=== PATIENT | female | born 1945 | race Caucasian/White ===

== ENCOUNTER → 2017-04-01 | Outpatient (CLI) | payer MEDICARE, OTHER ==
[~2017-04-01] MED LIST: HYDR25TA6 PO; LOSA50TA6 PO
[2017-04-01 14:52] LABS: BLOOD UREA NITROGEN 16 mg/dL (7-18)
[2017-04-01 14:55] LABS: ASPARTATE AMINO TRANSFERASE 17 U/L (15-37)
== END | disposition home or self-care (01) ==
LOC: STAR 13:26
PROVIDERS: ATTEND Obstetrics & Gynecology Female Pelvic Medicine and Reconstructive Surgery
DX: Z01.818 Encounter for other preprocedural examination (principal); N39.3 Stress incontinence (female) (male); N81.10 Cystocele, unspecified; N81.6 Rectocele; R10.2 Pelvic and perineal pain
CPT/HCPCS: 36415; 80053; 93005

== ENCOUNTER 2017-04-06 08:44 | Day surgery (SDC) | payer MEDICARE, OTHER ==
[2017-04-01 15:00] VITALS: BP 155/87
[~2017-04-06] VITALS: Ht 162.6 cm; Wt 66.0 kg
[~2017-04-06 08:44] MED LIST changes: +BUPIVACAINE/PF 0.25% ONE; +EPINEPHRINE 1 MG/ML, 1ML ONE; +NEOMY/POLYMYXIN B GU IRR. 1 ML IRRIG ONE
[2017-04-06] MEDS ORDERED: LACTATED RINGERS 1,000 ML IV SCH (09:00)
[2017-04-06] MEDS ORDERED: LIDOCAINE 1%, 2ML SQ PRN (09:00)
[2017-04-06] MEDS ORDERED: FENTANYL PF 100 MCG/2ML ONE ×3 (09:16→11:42)
[2017-04-06] MEDS ORDERED: MIDAZOLAM 1 MG/ML, 2ML ONE (09:16)
[2017-04-06] MEDS ORDERED: LIDOCAINE-MPF 2% ,5ML ONE (09:17)
[2017-04-06] MEDS ORDERED: PROPOFOL 10 MG/ML, 20ML ONE (09:17)
[2017-04-06] MEDS ORDERED: GLYCOPYRROLATE 0.4 MG/2 ML, 2ML ONE (09:18)
[2017-04-06] MEDS ORDERED: NEOSTIGMINE 1 MG/ML, 10ML ONE (09:18)
[2017-04-06] MEDS ORDERED: APREPITANT 40 MG CAPSULE PO ONE (09:38)
[2017-04-06] MEDS ORDERED: PROPOFOL 50 ML ONE (09:43)
[2017-04-06] MEDS ORDERED: CEFOTETAN 2 GM ONE (09:55)
[2017-04-06] MEDS ORDERED: PHENYLEPHRINE 10 MG/ML ONE (09:55)
[2017-04-06] MEDS ORDERED: ROCURONIUM 10 MG/ML,10ML ONE (09:55)
[2017-04-06] MEDS ORDERED: DEXAMETHASONE 4 MG/ML, 1ML ONE ×2 (10:02)
[2017-04-06] MEDS ORDERED: KETAMINE 10 MG/ML, 20ML ONE (10:16)
[2017-04-06] MEDS ORDERED: ACETAMINOPHEN 325 MG TABLET PO PRN (10:30)
[2017-04-06] MEDS ORDERED: ONDANSETRON 2MG/ML, 2ML IVPush PRN (10:30)
[2017-04-06] MEDS ORDERED: MEPERIDINE/PF 25MG/0.5ML IVPush PRN (10:30)
[2017-04-06] MEDS ORDERED: HYDROmorphone 1 MG/ML, 1ML IV PRN (10:30)
[2017-04-06] MEDS ORDERED: LABETALOL 5MG/ML, 20ML IV PRN (10:30)
[2017-04-06] MEDS ORDERED: hydrALAzine 20 MG/ML, 1ML IV PRN (10:30)
[2017-04-06] MEDS ORDERED: PROMETHAZINE 25 MG/ML, 1ML IV PRN (10:30)
[2017-04-06] MEDS ORDERED: ONDANSETRON 2MG/ML, 2ML ONE (10:53)
[2017-04-06] MEDS ORDERED: ACETAMINOPHEN 325 MG TABLET ONE (11:42)
[2017-04-06] MEDS ORDERED: OXYcodone 5 MG/5 ML ORAL.SOL UDC ONE ×2 (11:42→12:39)
[2017-04-06] MEDS ORDERED: ACETAMINOPHEN 650 MG/20.3 ML UDC ONE (11:42)
[2017-04-06] MEDS: OXYcodone 5 MG/5 ML ORAL.SOL UDC PO PRN ×2 (11:44→12:46)
[2017-04-06] MEDS: FENTANYL PF 100 MCG/2ML IV PRN ×2 (11:48→12:26)
[2017-04-06] MEDS ORDERED: MEPERIDINE/PF 50 MG/ML ONE (12:39)
[2017-04-06] MEDS ORDERED: HYDROcodone/APAP 5/325 TABLET ONE (15:54)
[2017-04-06] MEDS ORDERED: HYDROcodone/APAP 5/325 TABLET PO PRN (16:00)
== END 2017-04-06 17:15 ==
LOC: OUT 08:44
PROVIDERS: ATTEND Obstetrics & Gynecology Female Pelvic Medicine and Reconstructive Surgery
DX: N81.3 Complete uterovaginal prolapse (principal); N39.3 Stress incontinence (female) (male); I10 Essential (primary) hypertension; Z98.890 Other specified postprocedural states; Z88.4 Allergy status to anesthetic agent
CPT/HCPCS: 57282; 57288; 58552; 88307; C1781; J0171; J1100; J2175; J2250; J2370; J2405; J2704; J2710; J3010; J3490; J7120; J8501; S0074